=== PATIENT | male | born 1950 | race Caucasian/White ===

== ENCOUNTER 2017-08-27 12:00 | Observation (INO) | payer MEDICARE ==
[2017-08-27 15:46] LABS: Troponin I Less than 0.010 ng/mL (< 0.028)
--- NOTE | 2017-08-27 17:02 | HP ---
DATE OF ADMISSION: 08/27/2017 CHIEF COMPLAINT: Chest pain. HISTORY OF PRESENT ILLNESS: This is a 67-year-old white male with a known history of cardiac vasospa sms is in the past and has been closely followed up with Dr. Kay. Every year, he has a followup visit. The patient's last visit was in October. The patient is a known smoker and has been smoking 1 to 1-1/2 pack a day, but do not have any other known medical issues. Twenty years ago, he had a lida st pain and the patient had to go through a cardiac catheterization, which was showing evidence of va sospasm, but no stent was placed. Since then, the patient has been closely followed up with his Card iology. The patient otherwise is in good health. He denies having any nausea or vomiting at this ti me. The chest pain started yesterday, and when he woke up with pain of 4 on 10 intensity in the left precordium, which was intermittently coming and going. Today morning, he again noticed a similar pa in, so he decided to come to the ER for further evaluation. The patient also has a history of GERD a nd he takes Protonix for that. He did not think it was GERD or acid pain as it was more of heavy in nature. The patient had associated dizziness today along with sweating, so this is what triggered hi m to come to the ER. Right now, he is very comfortable. His pain is controlled with morphine. Ther e was no other aggravating factors for his chest pain. PAST MEDICAL HISTORY: 1. History of cardiac chest pain with NH in the past. 2. Active smoker. PAST SURGICAL HISTORY: The patient had no previous surgeries in the past. SOCIAL HISTORY: The patient is a known smoker. Smokes 1 to 1-1/2 pack a day. No history of alcohol . No history of illicit drug use. FAMILY HISTORY: The patient has significant family history of coronary artery disease, but his fathe r at the age of 67 and he was active smoker too, and mother also at age of 70. REVIEW OF SYSTEMS: All 12 systems are reviewed with the patient thoroughly and found to be negative at this time except the ones described in the HPI. ALLERGIES: No known drug allergies. HOME MEDICATIONS: None. PHYSICAL EXAMINATION: VITAL SIGNS: Blood pressures are 130/80, heart rate is 88, respiration rate is 18, saturation is 96% on room air. GENERAL: The patient is moderately built and moderately nourished. He does not appear to be in acut e distress at this time. He is alert and oriented x3. HEENT: Atraumatic, normocephalic. PERRLA. Extraocular movements are intact. Oral mucosa pink and moist. CARDIOVASCULAR: S1, S2 normal. No murmurs, no rubs, no gallops. LUNGS: Bilateral air entry was equal. No wheezing, no crackles. ABDOMEN: Soft, nontender. No guarding. No rebound tenderness. Bowel sounds normal. MUSCULOSKELETAL: No calf tenderness. No pedal edema. No joint redness. No joint swelling. SKIN: No cyanosis, no erythema, no rash, no pallor. NEUROLOGIC: Cranial nerve examination II-XII intact. No focal deficits were noted. NECK: No thyromegaly. No lymphadenopathy was noted. NODES: No generalized lymphadenopathy. No cervical or inguinal lymph nodes were noted. PSYCHIATRIC: No signs of suicidal ideation. No signs of eliot. LABORATORY DATA: Troponin 0.01. WBC was 12.8, hemoglobin 14.8, hematocrit is 43.4, platelets of 223 . Sodium is 138, potassium is 4.4, chloride is 107, BUN 13, creatinine 0.9. ASSESSMENT AND PLAN: 1. Acute chest pain, rule out myocardial infarction. 2. Acute leukocytosis. 3. Moderate dehydration. 4. Active smoker. 5. Gastroesophageal reflux disease. PLAN: 1. Plan is to admit this patient and closely monitor with serial troponins q.6 hours. If the patien t continues to have negative troponins, we will plan to do a nuclear stress test tomorrow. If the pa tient develops any further chest pains overnight, we will repeat an EKG and will consult Cardiology a t that time. 2. The patient has a history of active smoking. We will do a nicotine patch 14 mcg. 3. The patient has a history of gastroesophageal reflux disease. We will start the patient on famo tidine 20 mg IV b.i.d., and will give Tums as needed. 4. The patient has signs of dehydration with leukocytosis. Chest x-ray was done showing no evidence of any pneumonia at this time. We will closely monitor and repeat the CBC in the morning. Otherwis e, no other source of infection was noted. 5. DVT prophylaxis with Lovenox 40 mg subcu a day. I spent 70 minutes on this patient.
[2017-08-27] MEDS ORDERED: Acetaminophen 325 MG TAB PO PRN (17:59)
[2017-08-27] MEDS ORDERED: Ondansetron ODT 4 MG TAB PO PRN (17:59)
[2017-08-27] MEDS ORDERED: Ondansetron HCl/PF 4 MG/2 ML Vial IVP PRN (17:59)
[2017-08-27] MEDS ORDERED: Bisacodyl 5 MG TAB PO PRN (17:59)
[2017-08-27] MEDS ORDERED: Mag-Al 1200 mg/1200 mg/30 ML UDCUP PO PRN (17:59)
[2017-08-27] MEDS ORDERED: Nitroglycerin 0.4 MG TAB (25 Tab Bottle) PO PRN (17:59)
[2017-08-27] MEDS ORDERED: HYDROcodone/Acetaminophen 5/325 mg Tablet PO PRN (17:59)
[2017-08-27 18:22] VITALS: BMI 25.0
[2017-08-27] MEDS: Sodium Chloride 0.9% 1,000 ML IV SCH (18:28)
[2017-08-27 19:12] LABS: Troponin I 0.011 ng/mL (< 0.028)
[2017-08-27] MEDS: Docusate 100 MG CAP PO SCH (20:42)
[2017-08-27] MEDS: Carvedilol 3.125 MG TAB PO SCH (20:42)
[2017-08-27] MEDS: Famotidine/PF 20 mg/2ml Vial SLOW IVP SCH (20:43)
[2017-08-27 21:41] LABS: Troponin I Less than 0.010 ng/mL (< 0.028)
[2017-08-28 04:29] LABS: #Basophils 0.1 thou/uL (0.0-0.2); #Eosinphils 0.3 thou/uL (0.0-0.7); #Lymphocytes 2.7 thou/uL (1.20-3.40); %Basophils 0.8 % (0.0-1.0); %Eosinophils 2.5 % (0.0-10.0); %Lymphocytes 26.9 % (21.0-51.0); %Monocytes 9.5 % (0.0-10.0); %Neutrophils 60.2 % (42.0-75.0); Hemoglobin 13.7 g/dL (14.0-18.0); Mean Corpuscular Hemoglobin 32.3 pg (27.0-31.0); Mean Platelet Volume 6.9 fL (7.4-10.4); Platelet Count 221 thou/uL (130-400); RBC Distribution Width 13.4 % (11.5-14.5); Red Blood Cell (RBC) Count 4.24 mill/uL (4.70-6.10)
[2017-08-28 04:40] LABS: Anion Gap 5 mmol/L (10-20); BUN (Urea Nitrogen) 15 mg/dL (8.4-25.7); Calc. Creatinine Clearance 73 mL/min (70-130); Calcium 9.1 mg/dL (7.8-10.44); Carbon Dioxide 28 mmol/L (23-31); Cardiac Risk 3.5 (Less than 4.5); Chloride 108 mmol/L (98-107); Cholesterol 112 mg/dl (< 200 Desired); Estimated GFR-MDRD 73; Glucose 100 mg/dL (80-115); HDL Cholesterol 32 mg/dL (>60 Neg Risk); LDL Cholesterol, Calculated 52 mg/dL; Potassium 4.2 mmol/L (3.5-5.1); Sodium 137 mmol/L (136-145); Triglycerides 140 mg/dL (Less than 150)
[2017-08-28] MEDS ORDERED: ADENOSINE 60 MG/20 ML VIAL ONE (08:14)
[2017-08-28] MEDS ORDERED: Aspirin 325 MG TAB PO SCH (09:00)
[2017-08-28] MEDS ORDERED: Enoxaparin Sodium 40 MG/0.4 ML SYRINGE SC SCH (09:00)
[2017-08-28] MEDS: Sodium Chloride 0.9% 1,000 ML IV SCH (09:06)
[2017-08-28] MEDS: Carvedilol 3.125 MG TAB PO SCH (09:07)
[2017-08-28] MEDS: Docusate 100 MG CAP PO SCH ×2 (09:08→09:11)
[2017-08-28] MEDS: Famotidine/PF 20 mg/2ml Vial SLOW IVP SCH (09:10)
--- NOTE | 2017-08-28 14:17 | NM ---
NUCLEAR MEDICINE CARDIAC PERFUSION EXAMINATION WITH EJECTION FRACTION: HISTORY: A 67-year-old male with chest pain and a history of coronary artery disease/myocardial infarction. TECHNIQUE: A single-day nuclear medicine cardiac perfusion examination was performed. Rest images were obtained using 9 mCi of Technetium 99m sestamibi. Stress images were obtained using 27 mCi of Technetium 99m sestamibi and adenosine. FINDINGS: Tomographic images show no fixed or reversible perfusion defects. Gated images show normal wall brian on with an ejection fraction of 58%. EDV is 89 mL. LHR is 0.4. TID is 1.0. IMPRESSION: No evidence of ischemia. POS: DANE
[2017-08-28 16:11] VITALS: BP 135/77; TEMP 98.2
--- NOTE | 2017-08-29 10:00 | DIS ---
DATE OF ADMISSION: 08/27/2017 DATE OF DISCHARGE: 08/28/2017 ADMITTING DIAGNOSIS: Acute chest pain. DISCHARGE DIAGNOSIS: Acute chest pain, noncardiac. SECONDARY DIAGNOSES: History of IA in the past. Active smoker. PROCEDURES DONE DURING THIS ADMISSION: Nuclear stress test which was negative and with echo with eje ction fraction of 57%. HISTORY OF PRESENT ILLNESS: In brief, this is a 67-year-old white male with a known history of cardi ovascular spasms in the past and being closely followed by Dr. Kay, presented to the hospital wi th persistent chest pains for the past 2 days and has been smoking 1 to 1-1/2 pack a day and has been trying to quit. The patient was being closely followed by Dr. Kay and is supposed to be follow ed up in October of this year, so because of the persistent chest pain he had to come to the ER and was monitored with an EKG, was deemed normal and troponins have been normal. The patient was monitored overnight with negative troponins. The following day in the morning, a nuclear stress test was order ed along with a 2D echo, 2D echo had no wall motion abnormalities with EF of 57%. A nuclear stress t est was unremarkable with no evidence of any cardiac risk of chest pain. The patient was discharged home and reassured. Advised to continue on the Protonix for his GERD. The patient was discharged ho ut in stable condition. PHYSICAL EXAMINATION: VITAL SIGNS: Blood pressures are 135/63, heart rate is 67, respiration rate 18, saturation 98%. GENERAL: The patient is moderately built, moderately nourished. CARDIOVASCULAR: S1, S2 normal. No murmurs, rubs or gallops. LUNGS: Bilateral air entry was equal. No wheezing, no crackles. ABDOMEN: Soft, nontender. No guarding, no rebound tenderness. MUSCULOSKELETAL: No calf tenderness. No pedal edema. EXTREMITIES: No joint tenderness, no joint swelling. SUPPORT DIRECTOR: No cranial nerve deficits noted. No new neurologic deficits were noted. DISCHARGE MEDICATIONS: 1. Diltiazem 240 mg p.o. daily. 2. Ezetimibe/simvastatin 1 tablet p.o. at bedtime. DISCHARGE INSTRUCTIONS: Continue activity as tolerated. Advised to follow up with primary care phys jackeline in 1 week, advised to return to the ER if the patient has persistent chest pains or follow up w bertin Kay as per his schedule. Continue with a cardiac diet. I counseled the patient to quit smoking and spent more than 15 minutes explaining the patient. I spent 35 minutes with this patient on the day of discharge.
--- NOTE | 2017-11-27 21:07 | STRESS ---
Acquisition Time: 2017-08-28 12:18:58 Total Exercise Time: 00:04:00 Test Indications: CHEST PAIN Medications: Protocol: ADENOSINE Max HR: 086 BPM 55% of Pred: 154 BPM Max BP: 142/068 mmHG Max Work Load: 1.0 METS RESTING ECG: SINUS BRADYCARDIA AT 55 BPM WITH RARE PAC'S SYMPTOMS: DYSPNEA AND CHEST PAIN NORMAL BP RESPONSE ECTOPY: NONE ECG STRESS: NO SIGNIFICANT CHANGES INTERPRETATION: NEGATIVE ECG/AWAIT NUCLEAR IMAGES FOR DEFINITIVE DIAGNOSIS COMMENTS: 2:1 AV BLOCK WITH ADENOSINE INFUSION Confirmed by NINI GRUBER MD ([id number]) on 11/27/2017 9:06:48 PM Referred By: MD Lilibeth FUCHS Confirmed By:NINI GRUBER MD
== END 2017-08-28 16:25 | disposition home or self-care (01) ==
LOC: ERS 12:00 → 2SW 17:59
PROVIDERS: ADMIT Family Medicine; ATTEND Family Medicine
DX: R07.89 Other chest pain (principal); I25.2 Old myocardial infarction; F17.210 Nicotine dependence, cigarettes, uncomplicated; D72.829 Elevated white blood cell count, unspecified; E86.0 Dehydration; K21.9 Gastro-esophageal reflux disease without esophagitis; Z79.899 Other long term (current) drug therapy
CPT/HCPCS: 78452; 80048; 80061; 84484; 85025; 93017; 94760 ×2; 96361 ×2; 96374; 96376; 97139 ×3; 99285; 99406; A9500; G0378; G8987; G8988; G8989; 36415; J0153; S0028

== ENCOUNTER 2020-07-11 13:33 | Inpatient (IN) | payer MEDICARE ==
[2020-07-11 14:19] LABS: #Basophils 0.1 thou/uL (0.0-0.2); #Eosinphils 0.1 thou/uL (0.0-0.7); #Lymphocytes 3.6 thou/uL (1.20-3.40); #Monocytes 1.2 thou/uL (0.11-0.59); #Neutrophils 9.2 thou/uL (1.40-6.50); %Basophils 0.8 % (0.0-1.0); %Lymphocytes 25.3 % (21.0-51.0); %Monocytes 8.6 % (0.0-10.0); %Neutrophils 64.3 % (42.0-75.0); Mean Corpuscular HGB CONC 33.3 g/dL (32.0-36.0); Mean Corpuscular Hemoglobin 31.8 pg (27.0-31.0); Mean Corpuscular Volume 95.6 fL (78.0-98.0); Mean Platelet Volume 7.7 fL (7.4-10.4); Platelet Count 227 thou/uL (130-400); Red Blood Cell (RBC) Count 4.73 mill/uL (4.70-6.10); White Blood Cell (WBC) Count 14.2 thou/uL (4.8-10.8)
[2020-07-11 14:46] LABS: ALT (SGPT) 15 U/L (8-55); AST (SGOT) 19 U/L (5-34); Albumin 4.2 g/dL (3.4-4.8); Alkaline Phosphatase 77 U/L (40-110); Anion Gap 15 mmol/L (10-20); BUN (Urea Nitrogen) 18 mg/dL (8.4-25.7); Bilirubin, Total 0.5 mg/dL (0.2-1.2); Calc. Creatinine Clearance 0 mL/min (70-130); Calcium 9.5 mg/dL (7.8-10.44); Carbon Dioxide 22 mmol/L (23-31); Chloride 107 mmol/L (98-107); Estimated GFR-MDRD 62; Globulin 3.2 g/dL (2.4-3.5); Glucose 102 mg/dL (80-115); Potassium 4.1 mmol/L (3.5-5.1); Protein, Total 7.4 g/dL (5.8-8.1); Sodium 140 mmol/L (136-145)
[2020-07-11] MEDS ORDERED: Aspirin Chewable 81 MG TAB ONE (15:32)
--- NOTE | 2020-07-11 15:34 | CT ---
CTA HEAD WITH AND WITHOUT CONTRAST: CTA NECK WITH CONTRAST: 07/11/20 Axial tomograms obtained through the head without contrast. This is followed by CTA head and neck wit h multiplanar reconstruction and 3D postprocessing following angio protocol. INDICATIONS: Right arm weakness. CT HEAD WITHOUT CONTRAST: No comparison. Moderately severe chronic ischemic white matter changes are seen in both cerebral hemispheres. There is focal encephalomalacia in the left occipital lobe and parietal lobe consistent with an old infarct . There is no edema or mass. There is no evidence of acute cortical infarct. There is no hemorrhage. Pa ranasal sinuses appear clear. IMPRESSION: Moderately severe chronic ischemic white matter changes. Evidence of old left occipitoparietal infarc t. CTA HEAD: The intracranial internal carotid arteries are patent and symmetric. Cavernous ICAs are patent. There is focal stenosis at the origin of the left M1 segment at the carotid terminus. The mid and distal M1 is patent with no other stenosis seen. The right middle cerebral artery is giron nt throughout its course. Anterior cerebral arteries are patent. Basilar arteries patent. Posterior cerebral arteries appear patent and symmetric. IMPRESSION: Focal stenosis at the origin of the left middle cerebral artery at the carotid terminus. CTA NECK: There is atherosclerotic changes of the aortic arch. There is focal stenosis at the origin of the lef t common carotid artery which appears severe in the axial plane. The common carotid arteries are otherwise patent and symmetric. Mild atherosclerotic change at both bulbs; however, no stenosis in either extracranial internal carot id artery identified. Vertebral arteries appear patent and symmetric. Nodule in the right lobe of thyroid anteriorly measuring 1.0 cm. No other significant soft tissue abnormality. There are degenerative changes in the cervical spine most pronounced at C5-6 and C6-7 with posterior spondylosis at these levels abutting the cord and producing foraminal stenosis. IMPRESSION: 1. Severe stenosis at the origin of the left common carotid artery at the aortic arch. 2. Small right thyroid nodule. 3. Degenerative changes in the cervical spine prominent at C5-6 and C6-7 as described above. Findings relayed to Dr. Rodriguez. Babita KAM
[2020-07-11] MEDS ORDERED: Acetaminophen 325 MG TAB PO PRN (18:38)
[2020-07-11] MEDS ORDERED: Ondansetron PF 4 MG/2 ML Vial IVP PRN (18:38)
[2020-07-11] MEDS ORDERED: Clopidogrel Bisulfate 75 MG TAB ONE (19:10)
[2020-07-11] MEDS ORDERED: SIMVASTATIN PO SCH (21:00)
[2020-07-11] MEDS ORDERED: Simvastatin 10 MG TAB PO SCH (21:00)
[2020-07-11] MEDS ORDERED: Ezetimibe 10 MG TAB PO SCH (21:00)
[2020-07-11] MEDS ORDERED: Atorvastatin Calcium 40 MG TAB PO SCH (21:00)
[2020-07-11] MEDS ORDERED: EZETIMIBE PO SCH (21:00)
[2020-07-11 21:44] VITALS: BMI 25.4
--- NOTE | 2020-07-12 03:07 | HP ---
CHIEF COMPLAINT: Right arm numbness and tingling. HISTORY OF PRESENT ILLNESS: The patient is a 70-year-old male with past medical history of coronary spasms and hyperlipidemia, who presents to the hospital with tingling to his right arm going on for the past few weeks. The patient stated that initially his tingling and numbness was on and off to his right upper extremity, however, for the past week and a half it has been constant, it just intensifies at times. The patient states that he gets numbing and tingling all the way from his last 3 fingers going up and down his arm. Denies any chest tightness, any nausea, vomiting, or diarrhea. He stated that once he had some right lower extremity numbness, he experienced as if his leg fell asleep, however, that occurred only once. The patient followed up with Neurology as an outpatient. He was supposed to get an MRI, which would take longer than expected, so he came into the hospital. He was sent to the hospital by the primary care and by Neurology. PAST MEDICAL HISTORY: History of arthritis. He has coronary spasms, hyperlipidemia, heartburn, and skin cancer. PAST SURGICAL HISTORY: He has had cardiac catheterization. FAMILY HISTORY: Father is , diagnosed with hypertension, heart disease. Mother, hypertension and heart disease. SOCIAL HISTORY: He was a former heavy smoker, continues to smoke about 5 to 6 cigarettes a day. Occasional alcohol use. Denies any drug use. He is a full code. He lives with his family. REVIEW OF SYSTEMS: All negative except for the ones mentioned above in the HPI. PHYSICAL EXAMINATION: VITAL SIGNS: Temperature 98.5, respiratory rate 14, heart rate of 59, blood pressure 148/77, and 92% on room air. GENERAL: He is awake, alert, and oriented x3. Does not appear in distress. CV: S1 and S2 present. No murmurs, rubs, or gallops. LUNGS: Clear to auscultation. No rhonchi or wheezes noted. ABDOMEN: Soft and nontender. Bowel sounds are present x2. NEUROVASCULAR RIGGINS: Bilateral upper extremity strength and bilateral lower extremity strength intact. His sensation to his right arm is a little bit weaker compared to his left arm. [id number], [id number] intact. I did not ambulate the patient. SKIN: No cuts, lesions, or bruises noted. ALLERGIES: HE HAS NO KNOWN ALLERGIES. MEDICATIONS: 1. Cardizem 240 mg daily. 2. Vytorin 10 mg daily. 3. Metoprolol 25 mg twice a day. LABORATORY RESULTS: As of the following; WBCs of 14.2, hemoglobin 15.0, hematocrit of 45.2, and platelets of 227. Chemistry; sodium of 140, potassium of 4.1, BUN of 18, and creatinine of 1.17. His magnesium is 1.9. Troponins 0.013. He had an EKG, which appears to be significantly normal sinus rhythm. He had a CTA which indicated severe stenosis in the origin of the left common carotid artery at the aortic arch, small right thyroid nodule. Degenerative changes in the cervical spine, prominent in C5 and C6 and C6 and C7. ASSESSMENT AND PLAN: The patient is a 70-year-old male, who presents to the hospital with ongoing numbness and tingling to his right arm. 1. Right arm numbness and tingling, possible transient ischemic attack. CTA indicated severe stenosis to the origin of the left common carotid. The patient is not on aspirin. We will start him on a 325 aspirin. We will continue his Vytorin. We will check his lipid panel in the morning. We will get Neurology to evaluate him. We will get an echo and an MRI of the brain without contrast. We will also give CV surgery given his findings and his findings on the CTA with severe stenosis at the origin of the left common carotid. I have advised the patient against smoking session. 2. Coronary spasm. I will continue the Cardizem and the metoprolol. 3. Hyperlipidemia. Again, I will continue his Vytorin or we may add atorvastatin. 4. Deep venous thrombosis prophylaxis. I will put the patient on subcu Lovenox. Job ID: [id number]
[2020-07-12 03:50] LABS: SARS-CoV-2 MS2 Positive; SARS-CoV-2 N Gene Negative; SARS-CoV-2 S Gene Negative; SARS-CoV-2 by NAA Not Detected (NotDetected); SARS-CoV-2 orf1ab Negative
[2020-07-12 06:07] LABS: Cardiac Risk 3.9 (Less than 4.5)
[2020-07-12] MEDS ORDERED: Aspirin 325 mg Enteric Coated Tablet PO SCH (09:00)
[2020-07-12] MEDS ORDERED: Enoxaparin Sodium 40 MG/0.4 ML SYRINGE SC SCH (09:00)
[2020-07-12] MEDS ORDERED: Aspirin 81 mg Enteric Coated Tablet PO SCH (11:00)
--- NOTE | 2020-07-12 11:15 | CON ---
DATE OF CONSULTATION: HISTORY OF PRESENT ILLNESS: Mr. Cool was admitted through the emergency department on 07/11. I was asked to see him due to CT angiogram findings. He was admitted with right arm numbness for about 6 weeks. It has been intermittent. It is not associated with activities. He has no motor deficits. He has no symptoms in his right leg. He has no facial symptoms. He has had no visual or speech difficulty. The patient has a history of coronary spasm that has been followed by Dr. Kay. He has been intermittently unreliable and taking his medications at home. He has no history of myocardial infarction, cerebrovascular accident, abdominal aneurysm, claudication. PAST MEDICAL HISTORY: 1. Coronary spasm. 2. Dyslipidemia. 3. GERD. 4. Arthritis. PAST SURGICAL HISTORY: None. SOCIAL HISTORY: He continues to smoke. He uses occasional alcohol. MEDICATIONS: At home; 1. Metoprolol 25 mg b.i.d. 2. Cardizem CD 240 mg at bedtime. 3. Vytorin 1 tablet at bedtime. ALLERGIES: NONE. REVIEW OF SYSTEMS: A 10-point review of systems is negative except as above. PHYSICAL EXAMINATION: GENERAL: This is a well-developed, well-nourished male, resting comfortably on the stroke unit. VITAL SIGNS: Height 5 feet 7 inches. Weight is 162 pounds. Temperature is 96.7, pulse is 62 and regular, and blood pressure is 152/67. HEENT: Sclerae nonicteric. Pupils are equal and round bilaterally. NECK: Supple without bruit. CHEST: Clear bilaterally. HEART: Rhythm is regular without murmur. ABDOMEN: Soft and nontender. There are no masses. EXTREMITIES: No cyanosis, clubbing, or edema. VASCULAR: He has palpable carotid, radial, femoral, dorsalis pedis pulses bilaterally. NEURO: Motor exam is symmetric. He has no dissymmetry of his face. Speech pattern is normal. His vision appears normal. DIAGNOSTIC DATA: CT angiogram shows on the left common carotid artery takeoff from the aortic arch, there is a tight stenosis with no calcification. Carotids otherwise are completely normal. ASSESSMENT AND PLAN: Left common carotid artery stenosis with right-handed arm numbness. Symptoms are more than likely not related to his carotid stenosis. I have started him on aspirin and Plavix. I have told him we will follow him up in the office and discussed angiograms as an outpatient. This is a stentable lesion, but again I am not sure of the utility in that as it is not source of his symptomatology. This sounds more like a neurocompressive issue to me. Job ID: [id number]
--- NOTE | 2020-07-12 11:43 | MRI ---
EXAM: MRI of the brain without contrast HISTORY: Right-sided weakness COMPARISON: None TECHNIQUE: Multiplanar multisequence MR images were obtained of the brain without IV contrast. FINDINGS: Scattered foci of high T2/FLAIR signal in the subcortical and periventricular white matter are likely secondary to small vessel ischemic disease. There is confluent high FLAIR signal and restricted diffusion in the left posterior parietal lobe. Th is measures approximately 2.3 x 4.9 cm in size. No hydronephrosis. No extra-axial fluid collection or intracranial hemorrhage. The expected flow voids are present. Corpus callosum, pituitary, and craniocervical junction are within normal limits. The calvarium and overlying soft tissues are unremarkable. The paranasal sinuses and mastoid air cells are well aerated. IMPRESSION: Acute infarction in the left posterior parietal lobe.
[2020-07-12 11:53] VITALS: TEMP 98.2
--- NOTE | 2020-07-12 13:52 | CON ---
NEUROLOGY CONSULTATION DATE OF CONSULTATION: 07/12/2020 REASON FOR CONSULTATION: Right upper extremity numbness and paresthesias. HISTORY OF PRESENT ILLNESS: Mr. Cool is a 70-year-old male with medical history significant for coronary spasms and hyperlipidemia, presented to the emergency room with tingling of the right upper extremity, which has been ongoing for the last 2 weeks. Per the patient, the tingling and numbness was on and off in his right upper extremity, but since the past week and a half, it has been constant and intensified multiple times all the way to his last 3 fingers and down the arm. The patient denies any focal weakness, headache, chest pain, abdominal pain, double vision, loss of vision or loss of consciousness, nausea, vomiting, diarrhea, recent illness or recent exposure to COVID. Per the patient, he did have some right lower extremity numbness at times, which is also intermittent. He was seen by Dr. Murphy as outpatient and was supposed to get an MRI Brain, which took longer than expected, so he decided to come to the emergency room for further evaluation. In the emergency room, head CT was done, which did not reveal any acute intracranial pathology. CTA indicated severe stenosis in the origin of the left common carotid artery at the aortic arch and degenerative changes in the cervical spine, prominent in C5 and C6 and C7. REVIEW OF SYSTEMS: All systems were reviewed and were negative except the pertinent positives and negatives mentioned in the HPI. PAST MEDICAL HISTORY: Arthritis, coronary spasm, hyperlipidemia, GERD, and skin cancer. PAST SURGICAL HISTORY: Cardiac catheterization. FAMILY HISTORY: Hypertension, coronary artery disease. SOCIAL HISTORY: The patient is a former heavy smoker. He continues to smoke 5 to 6 cigarettes a day. Occasional alcohol use. Denies drug use. Lives with family. PHYSICAL EXAMINATION: VITAL SIGNS: Blood pressure 148/77, heart rate 59, and respiratory rate 14. GENERAL: He is alert and awake male, in no acute distress. CVS: Regular rate and rhythm. CHEST: Clear. ABDOMEN: Soft. NECK: Supple. NEUROLOGICAL: Mental status; the patient is alert and oriented to person, place, and time. Recent and remote memory intact. Fund of knowledge is appropriate. Speech is clear. Cranial nerves II through XII intact. Motor; muscle tone and bulk are normal. Strength 5/5 bilaterally. Sensory; decreased sensation to light touch in the right upper extremity. Cerebellar; finger-nose testing intact. Gait; deferred due to the patient's safety reason. ALLERGIES: NO KNOWN DRUG ALLERGIES. HOME MEDICATIONS: 1. Cardizem 240 mg daily. 2. Vytorin 10 mg daily. 3. Metoprolol 25 mg twice a day. DATA REVIEWED: I reviewed the labs. The EKG, which showed normal sinus rhythm. CTA findings were abnormal as indicated in the HPI. ASSESSMENT AND PLAN: Mr. Cool is a 70-year-old male, who presented with ongoing numbness and paresthesias of the right upper extremity. CTA of the neck shows severe stenosis to the origin of the left common carotid artery. The patient was already seen by CV Surgery. Recommendations appreciated. MRI of the brain did show an acute infarct in the left posterior parietal lobe consistent with his symptoms. 2D echo completed, which showed left ventricular ejection fraction 55% to 60%. No thrombus or PFO. Continue telemetry to rule out arrhythmias. The patient started on aspirin and Plavix yesterday because of atherosclerotic occlusive disease. Continue aspirin and Plavix for secondary stroke prevention. Continue statin for secondary stroke prevention. Neuro checks every 4 hours. Permissive control of blood pressure at this time for 48 hours. Strict control of blood glucose. PT/OT/Speech. We will continue to follow. Thank you for the consult. Job ID: [id number] [id number]
[2020-07-12 15:21] VITALS: BP 133/60
--- NOTE | 2020-07-12 17:42 | DIS ---
DATE OF ADMISSION: 07/11/2020 DATE OF DISCHARGE: 07/12/2020 DISCHARGE DIAGNOSES: As of the followin. Acute left posterior parietal lobe stroke. 2. Left carotid stenosis. HOSPITAL COURSE: Patient is a 70-year-old male, who initially presented to the hospital with a right arm tingling sensation, which has been going on for a few weeks. He initially came into the hospital, underwent a CTA, which indicated a severe stenosis at the origin of the left common carotid and the aortic arch, also small right thyroid nodule. At this time, patient was seen by Neurology and CV Surgery. A brain MRI indicated acute infarct in the left posterior parietal lobe. Patient also underwent an echocardiogram which indicated an EF of 55% to 60%. Patient at this time was seen by CV Surgery, who recommended dual antiplatelet therapy since patient was not taking anything and follow up as an outpatient. Patient actually wanted to leave. He did not want to stick around for another day. I did advise the patient to stop taking his blood pressure medications for the past couple of days and to check his blood pressure at home. Patient actually takes the Cardizem for coronary spasms and he takes the metoprolol for tremors. I have told him to stop the metoprolol for now. Continue with the blood pressure monitoring and follow up with his Primary and also hold the Cardizem for the next two days. Patient states that if he stops it longer than two days, he starts getting coronary spasms which causes significant chest tightness. Patient will follow up again with CV Surgery as an outpatient and also with primary care. I did tell the patient if anything changes in terms of worsening symptoms, he needs to come back to the ER. Right thyroid nodule. I did ask the patient to follow up as an outpatient for further evaluation. HOME MEDICATIONS: Will be: 1. Aspirin 81 mg daily. 2. Plavix 75 mg daily. 3. Vytorin 1 tab daily. Diltiazem and metoprolol will be held. PHYSICAL EXAMINATION: VITAL SIGNS: Temperature 98.2, heart rate of 59, 18, 97% on room air, and 152/67. GENERAL: He is awake, alert, and oriented x3. Does not appear in distress. CV: S1, S2 present. No murmurs, rubs, or gallops. EXTREMITIES: Again, his bilateral upper extremity and lower extremity strength is intact. He is able to ambulate without any difficulties. Job ID: [id number]
[2020-07-13] MEDS ORDERED: Clopidogrel Bisulfate 75 MG TAB PO SCH (09:00)
[2020-07-13] MEDS ORDERED: Aspirin 81 mg Enteric Coated Tablet PO SCH (09:00)
== END 2020-07-12 15:34 | disposition home or self-care (01) | DRG 65 ==
LOC: ERS 13:33 → 2SE 17:49
PROVIDERS: ADMIT Internal Medicine; ATTEND Internal Medicine
DX: I63.89 Other cerebral infarction (principal); I20.1 Angina pectoris with documented spasm; R20.2 Paresthesia of skin; E78.5 Hyperlipidemia, unspecified; M19.90 Unspecified osteoarthritis, unspecified site; R25.1 Tremor, unspecified; E04.1 Nontoxic single thyroid nodule; Z20.828 Contact with and (suspected) exposure to other viral communicable diseases; I65.22 Occlusion and stenosis of left carotid artery; K21.9 Gastro-esophageal reflux disease without esophagitis; Z85.828 Personal history of other malignant neoplasm of skin; Z87.891 Personal history of nicotine dependence
CPT/HCPCS: 36415; 70496; 70498; 70551; 80053; 80061; 83735; 84484; 85025; 87635; 93005; 93306; J1650; U0003

== ENCOUNTER 2020-07-26 06:52 | Outpatient (CLI) | payer MEDICARE ==
[2020-07-26 14:33] LABS: Hemoglobin 14.1 g/dL (14.0-18.0); Mean Corpuscular HGB CONC 33.8 G/DL (32.0-36.0); Mean Corpuscular Volume 94.8 fl (80.0-100.0); Mean Platelet Volume 9.7 fl (7.4-10.4); Platelet Count 262 10x3/uL (130-400); RBC Distribution Width 14.2 % (11.5-14.5); White Blood Cell (WBC) Count 9.2 10x3/uL (4.5-11.0)
[2020-07-26 14:43] LABS: Anion Gap 16 mmol/L (10-20); BUN (Urea Nitrogen) 12 mg/dL (8.4-25.7); Calc. Creatinine Clearance 0 mL/min (70-130); Calcium 9.8 mg/dL (7.8-10.44); Carbon Dioxide 20 mmol/L (23-31); Chloride 107 mmol/L (98-107); Glucose 103 mg/dL (80-115); Potassium 4.3 mmol/L (3.5-5.1); Sodium 139 mmol/L (136-145)
[2020-07-27 03:14] LABS: SARS-CoV-2 MS2 Positive; SARS-CoV-2 N Gene Negative; SARS-CoV-2 S Gene Negative; SARS-CoV-2 by NAA Not Detected (NotDetected); SARS-CoV-2 orf1ab Negative
== END 2020-07-26 06:53 | disposition home or self-care (01) ==
LOC: LABBT 06:52
PROVIDERS: ATTEND Thoracic Surgery (Cardiothoracic Vascular Surgery)
DX: Z01.812 Encounter for preprocedural laboratory examination (principal); I65.22 Occlusion and stenosis of left carotid artery; Z20.828 Contact with and (suspected) exposure to other viral communicable diseases
CPT/HCPCS: 80048; 85027; U0003; 87635

== ENCOUNTER 2020-07-26 13:45 | Inpatient (IN) | payer MEDICARE ==
[2020-07-31] MEDS ORDERED: Heparin 5,000 UNITS/ML VIAL ONE (06:31)
[2020-07-31] MEDS ORDERED: Protamine Sulfate 50 MG/5 ML VIAL ONE (06:31)
[2020-07-31] MEDS ORDERED: EPINEPHrine 1 MG/ML AMP ONE (06:31)
[2020-07-31] MEDS ORDERED: Bupivacaine PF 0.5% 30 ML VIAL ONE (06:31)
[2020-07-31] MEDS ORDERED: Fentanyl 100 MCG/2 ML VIAL ONE ×2 (06:50→16:47)
[2020-07-31] MEDS ORDERED: Midazolam HCl 2 mg/2 ml Vial ONE (07:05)
--- NOTE | 2020-07-31 08:55 | OP ---
DATE OF PROCEDURE: 07/31/2020 PREOPERATIVE DIAGNOSIS: Symptomatic left common carotid artery stenosis. POSTOPERATIVE DIAGNOSIS: Symptomatic left common carotid artery stenosis. PROCEDURES PERFORMED: 1. Ultrasound-guided interrogation of the left common carotid artery. 2. Open exposure of the left common carotid artery. 3. Left common carotid artery angiogram. 4. Stenting of left common carotid artery at the aortic arch with an 8 x 27 Express LD stent taken to 8 mmHg. ESTIMATED BLOOD LOSS: Minimal. TOTAL CONTRAST: 20 mL. FLUORO TIME: 1 minute 33 seconds. DESCRIPTION OF PROCEDURE: After consent was obtained, the patient was brought to the operating room, placed in supine position on the operating table. Appropriate central line and monitors were placed, and general endotracheal anesthesia was induced. Using ultrasound, the left carotid system was interrogated. The carotid bifurcation was marked, and an incision was marked just below the bifurcation. Neck was prepped and draped in usual sterile fashion. Skin incision was made, and common carotid artery exposed. A 5-0 Prolene pursestring suture was placed in the common carotid artery. The patient was systemically heparinized. The micropuncture needle, wire, and sheath were used to access the common carotid artery. Angiogram was performed, illuminating the common carotid artery, the area of stenosis at the aortic arch and the aortic arch. A Fancy Handsson guidewire was passed and passed easily through the area of stenosis. A 6-[place] sheath was passed down into the aortic arch and a second angiogram performed, further illuminating the edge of the aortic arch and the area of stenosis. An 8 x 27 stent was selected. Common carotid was clamped cephalad to the sheath access site. The stent was passed over the guidewire, positioned and deployed. Followup angiogram showed an excellent result with no residual stenosis. The sheath was removed, and the artery allowed to antegrade bleed. Clamp was removed. Pursestring suture was tied. Wounds were irrigated, closed in layers. Dermabond applied to the skin. 0.5% Marcaine block was performed. The patient was awakened and neurologically unchanged in the operating room. The patient was transferred to recovery room in stable condition. Needle, sponge, and instrument counts were all reported as correct at the end of the procedure. Job ID: [id number] [facility]
[2020-07-31] MEDS ORDERED: traMADol HCl 50 MG TAB PO PRN (10:27)
[2020-07-31] MEDS ORDERED: Phenylephrine 40 MG in Sodium Chloride 0.9% 250 ML 250 ML IVPB PRN (10:27)
[2020-07-31] MEDS ORDERED: Nitroglycerin 50 MG/250 ML BOT 250 ML IVPB PRN (10:27)
[2020-07-31] MEDS ORDERED: Acetaminophen 325 MG TAB PO PRN (10:27)
[2020-07-31] MEDS ORDERED: Fentanyl 100 MCG/2 ML VIAL SLOW IVP PRN (10:27)
[2020-07-31] MEDS ORDERED: Ondansetron PF 4 MG/2 ML Vial IVP PRN (10:27)
[2020-07-31] MEDS ORDERED: hydrALAZINE 20 MG/ML VIAL SLOW IVP PRN (10:27)
[2020-07-31] MEDS ORDERED: PHENYLEPHRINE-NS 100 MCG/ML 10 ML SYRINGE ONE (10:33)
[2020-07-31] MEDS ORDERED: ePHEDrine 50 MG/ML VIAL ONE (10:33)
[2020-07-31] MEDS ORDERED: Glycopyrrolate 0.2 MG/ML 5 ML SYRINGE ONE (10:33)
[2020-07-31] MEDS ORDERED: PROPOFOL 200 MG/20 ML VIAL ONE (10:33)
[2020-07-31] MEDS ORDERED: Lidocaine 1% PF 5 ML VIAL ONE (10:33)
[2020-07-31] MEDS ORDERED: Ondansetron PF 4 MG/2 ML Vial ONE (10:33)
[2020-07-31] MEDS ORDERED: Rocuronium Bromide 10 MG/ML (10ML VIAL) ONE (10:33)
[2020-07-31] MEDS: CEFAZOLIN 2 GM in Premix Bag 1 BAG IVPB SCH ×2 (16:40→23:08)
[2020-07-31] MEDS ORDERED: Simvastatin 10 MG TAB PO SCH (21:00)
[2020-07-31] MEDS ORDERED: Ezetimibe 10 MG TAB PO SCH (21:00)
[2020-07-31] MEDS: Sodium Chloride 0.9% 1,000 ML IV SCH ×2 (21:02→21:40)
[2020-07-31 21:13] VITALS: BMI 25.7
[2020-07-31 21:40] VITALS: BP 121/64
[2020-07-31] MEDS: Metoprolol Tartrate 25 MG TAB PO SCH (22:50)
[2020-08-01 04:16] VITALS: TEMP 98.5
[2020-08-01] MEDS: Sodium Chloride 0.9% 1,000 ML IV SCH (06:56)
--- NOTE | 2020-08-01 07:34 | DIS ---
DATE OF ADMISSION: 07/31/2020 DATE OF DISCHARGE: 08/01/2020 DIAGNOSIS: Symptomatic left common carotid stenosis. PROCEDURE: Left common carotid artery stenting. DISCHARGE MEDICATIONS: Unchanged from his admission. DESCRIPTION OF HOSPITAL STAY: Mr. Cool was admitted for elective left carotid stent. He has done well postoperatively. Neurologically, he is unchanged. He has had no problems and he is being discharged this morning to follow up with me in two weeks. Job ID: [id number]
[2020-08-01] MEDS: CEFAZOLIN 2 GM in Premix Bag 1 BAG IVPB SCH (07:36)
[2020-08-01] MEDS: Metoprolol Tartrate 25 MG TAB PO SCH (07:36)
[2020-08-01] MEDS ORDERED: Clopidogrel Bisulfate 75 MG TAB PO SCH (09:00)
[2020-08-01] MEDS ORDERED: Aspirin 81 mg Enteric Coated Tablet PO SCH (09:00)
[2020-08-01] MEDS ORDERED: FLU VACC QS2020-21(65YR UP)/PF 240 MCG/0.7 ML SYRINGE IM ONE (21:00)
== END 2020-08-01 09:06 | disposition home or self-care (01) | DRG 36 ==
LOC: SURG A 07-31 05:48 → EDSTATUS 07-31 13:45 → CCU 07-31 20:27
PROVIDERS: ADMIT Thoracic Surgery (Cardiothoracic Vascular Surgery); ATTEND Thoracic Surgery (Cardiothoracic Vascular Surgery)
PROC: 037J3DZ Dilation of Left Common Carotid Artery with Intraluminal Device, Percutaneous Approach (ICD-10-PCS; principal; 2020-07-31)
PROC: B3141ZZ Fluoroscopy of Left Common Carotid Artery using Low Osmolar Contrast (ICD-10-PCS; 2020-07-31)
PROC: 03JY0ZZ Inspection of Upper Artery, Open Approach (ICD-10-PCS; 2020-07-31)
DX: I65.22 Occlusion and stenosis of left carotid artery (principal); E78.5 Hyperlipidemia, unspecified; M19.90 Unspecified osteoarthritis, unspecified site; K21.9 Gastro-esophageal reflux disease without esophagitis; Z79.82 Long term (current) use of aspirin; Z79.02 Long term (current) use of antithrombotics/antiplatelets
CPT/HCPCS: 76000; C1876; J0171; J0690; J1642; J1644; J2250; J2405; J2704; J2720; J3010; J3490; J7620; S0020

== ENCOUNTER 2020-12-18 14:28 | Inpatient (IN) | payer MEDICARE ==
[2020-12-18] MEDS ORDERED: Enoxaparin Sodium 40 MG/0.4 ML SYRINGE SC SCH ×2 (16:00→20:15)
[2020-12-18 18:18] VITALS: BMI 24.9
[2020-12-18] MEDS: Sodium Chloride 0.9% 1,000 ML IV SCH (21:31)
[2020-12-18] MEDS: Atorvastatin Calcium 40 MG TAB PO SCH (21:32)
[2020-12-19 05:02] LABS: #Basophils 0.1 thou/uL (0.0-0.2); #Eosinphils 0.3 thou/uL (0.0-0.7); #Lymphocytes 2.8 thou/uL (1.20-3.40); #Monocytes 1.3 thou/uL (0.11-0.59); #Neutrophils 6.3 thou/uL (1.40-6.50); %Basophils 0.5 % (0.0-1.0); %Eosinophils 2.6 % (0.0-10.0); %Lymphocytes 25.8 % (21.0-51.0); %Monocytes 11.8 % (0.0-10.0); %Neutrophils 59.3 % (42.0-75.0); Hemoglobin 13.6 g/dL (14.0-18.0); Mean Corpuscular Hemoglobin 31.7 pg (27.0-31.0); Mean Corpuscular Volume 96.1 fL (78.0-98.0); Mean Platelet Volume 7.7 fL (7.4-10.4); Platelet Count 225 thou/uL (130-400); RBC Distribution Width 12.7 % (11.5-14.5); Red Blood Cell (RBC) Count 4.28 mill/uL (4.70-6.10); White Blood Cell (WBC) Count 10.7 thou/uL (4.8-10.8)
[2020-12-19 05:44] LABS: Anion Gap 13 mmol/L (10-20); BUN (Urea Nitrogen) 15 mg/dL (8.4-25.7); Calc. Creatinine Clearance 74 mL/min (70-130); Calcium 9.6 mg/dL (7.8-10.44); Carbon Dioxide 21 mmol/L (23-31); Cardiac Risk 4.6 (Less than 4.5); Chloride 107 mmol/L (98-107); Cholesterol 120 mg/dl (< 200 Desired); Glucose 99 mg/dL (80-115); HDL Cholesterol 26 mg/dL (>60 Neg Risk); LDL Cholesterol, Calculated 53 mg/dL; Sodium 137 mmol/L (136-145); Triglycerides 205 mg/dL (Less than 150)
[2020-12-19 08:58] LABS: SARS-CoV-2 PCR NAA for Saliva Not Detected (NotDetected)
[2020-12-19] MEDS: Aspirin 81 mg Enteric Coated Tablet PO SCH (09:12)
[2020-12-19] MEDS: Clopidogrel Bisulfate 75 MG TAB PO SCH (09:12)
[2020-12-19] MEDS: Sodium Chloride 0.9% 1,000 ML IV SCH (19:51)
[2020-12-19] MEDS: Atorvastatin Calcium 40 MG TAB PO SCH (20:23)
[2020-12-20] MEDS: Aspirin 81 mg Enteric Coated Tablet PO SCH (08:12)
[2020-12-20] MEDS: Clopidogrel Bisulfate 75 MG TAB PO SCH (08:12)
[2020-12-20] MEDS: Atorvastatin Calcium 40 MG TAB PO SCH (21:14)
[2020-12-21] MEDS ORDERED: Fentanyl 100 MCG/2 ML VIAL ONE (09:24)
[2020-12-21] MEDS ORDERED: PROPOFOL 20 ML ONE (09:25)
[2020-12-21] MEDS ORDERED: PROPOFOL 200 MG/20 ML VIAL ONE (09:57)
[2020-12-21] MEDS: Clopidogrel Bisulfate 75 MG TAB PO SCH (10:45)
[2020-12-21] MEDS: Aspirin 81 mg Enteric Coated Tablet PO SCH (10:45)
[2020-12-21 10:53] VITALS: BP 143/79; TEMP 97.5
== END 2020-12-21 12:25 | disposition home or self-care (01) | DRG 66 ==
LOC: ERS 14:28 → 2SE 15:48
PROVIDERS: ADMIT Internal Medicine; ATTEND Internal Medicine
DX: I63.442 Cerebral infarction due to embolism of left cerebellar artery (principal); R47.01 Aphasia; Z20.822 Contact with and (suspected) exposure to COVID-19; E78.5 Hyperlipidemia, unspecified; F17.210 Nicotine dependence, cigarettes, uncomplicated; I65.22 Occlusion and stenosis of left carotid artery; R47.1 Dysarthria and anarthria; R29.703 NIHSS score 3; R20.2 Paresthesia of skin; R40.4 Transient alteration of awareness; G83.31 Monoplegia, unspecified affecting right dominant side; Z95.828 Presence of other vascular implants and grafts; Z91.14 Patient's other noncompliance with medication regimen; Z86.73 Personal history of transient ischemic attack (TIA), and cerebral infarction without residual deficits; Z79.82 Long term (current) use of aspirin; Z79.899 Other long term (current) drug therapy; Z79.02 Long term (current) use of antithrombotics/antiplatelets
CPT/HCPCS: 36415; 70551; 80048; 80061; 85025; 87635; 93306; 93312; 95712; 95819; 95957; J1650; J2704; J3010; U0003; U0005

== ENCOUNTER 2021-01-29 02:59 | Inpatient (IN) | payer MEDICARE ==
[2021-01-29] MEDS ORDERED: Naloxone HCl 2 mg/2 ml Syringe ONE (05:20)
[2021-01-29 09:52] LABS: SARS-CoV-2 NAA Rapid Test Not Detected (NotDetected)
[2021-01-29 13:47] VITALS: BMI 25.3
[2021-01-29] MEDS: Piperacillin/Tazobactam 4.5 GM in Sodium Chloride 0.9% 100 ML IVPB SCH ×2 (15:55→22:23)
[2021-01-29] MEDS: Atorvastatin Calcium 40 MG TAB PO SCH (20:18)
[2021-01-30] MEDS: Piperacillin/Tazobactam 4.5 GM in Sodium Chloride 0.9% 100 ML IVPB SCH (06:39)
[2021-01-30 08:36] LABS: #Basophils 0.1 thou/uL (0.0-0.2); #Eosinphils 0.3 thou/uL (0.0-0.7); #Lymphocytes 2.7 thou/uL (1.20-3.40); #Monocytes 1.6 thou/uL (0.11-0.59); #Neutrophils 12.5 thou/uL (1.40-6.50); %Basophils 0.4 % (0.0-1.0); %Eosinophils 1.9 % (0.0-10.0); %Lymphocytes 15.4 % (21.0-51.0); %Monocytes 9.2 % (0.0-10.0); Hemoglobin 14.2 g/dL (14.0-18.0); Mean Corpuscular HGB CONC 33.1 g/dL (32.0-36.0); Mean Corpuscular Hemoglobin 31.6 pg (27.0-31.0); Mean Corpuscular Volume 95.5 fL (78.0-98.0); Mean Platelet Volume 7.8 fL (7.4-10.4); Platelet Count 233 thou/uL (130-400); RBC Distribution Width 12.9 % (11.5-14.5); White Blood Cell (WBC) Count 17.2 thou/uL (4.8-10.8)
[2021-01-30 08:47] LABS: Anion Gap 17 mmol/L (10-20); BUN (Urea Nitrogen) 13 mg/dL (8.4-25.7); Calc. Creatinine Clearance 54 mL/min (70-130); Carbon Dioxide 19 mmol/L (23-31); Chloride 105 mmol/L (98-107); Glucose 105 mg/dL (80-115); Magnesium 1.8 mg/dL (1.6-2.6); Sodium 137 mmol/L (136-145)
[2021-01-30] MEDS ORDERED: Non-Formulary Item 1 EACH (Esomeprazole Magnesium [Nexium 24hr] 20 MG Capsule.Dr) PO SCH (09:00)
[2021-01-30] MEDS: Aspirin 81 mg Enteric Coated Tablet PO SCH (09:00)
[2021-01-30] MEDS: Amlodipine 5 MG TAB PO SCH (09:01)
[2021-01-30] MEDS: metroNIDAZOLE 500 MG TAB PO SCH ×2 (13:51→21:02)
[2021-01-30] MEDS: Ciprofloxacin 500 MG TAB PO SCH (21:00)
[2021-01-30] MEDS: Atorvastatin Calcium 40 MG TAB PO SCH (21:01)
[2021-01-31 04:12] VITALS: TEMP 97.9
[2021-01-31] MEDS: Ciprofloxacin 500 MG TAB PO SCH (05:08)
[2021-01-31] MEDS: metroNIDAZOLE 500 MG TAB PO SCH (07:58)
[2021-01-31] MEDS: Amlodipine 5 MG TAB PO SCH (07:58)
[2021-01-31] MEDS: Aspirin 81 mg Enteric Coated Tablet PO SCH (07:58)
[2021-01-31 08:25] VITALS: BP 126/72
[2021-01-31 10:27] LABS: #Basophils 0.1 thou/uL (0.0-0.2); #Eosinphils 0.4 thou/uL (0.0-0.7); #Lymphocytes 2.5 thou/uL (1.20-3.40); #Monocytes 1.2 thou/uL (0.11-0.59); #Neutrophils 7.7 thou/uL (1.40-6.50); %Basophils 0.6 % (0.0-1.0); %Eosinophils 3.1 % (0.0-10.0); %Monocytes 9.8 % (0.0-10.0); %Neutrophils 65.5 % (42.0-75.0); Hemoglobin 13.5 g/dL (14.0-18.0); Mean Corpuscular HGB CONC 32.7 g/dL (32.0-36.0); Mean Corpuscular Hemoglobin 31.7 pg (27.0-31.0); Mean Corpuscular Volume 96.9 fL (78.0-98.0); Mean Platelet Volume 7.9 fL (7.4-10.4); Platelet Count 222 thou/uL (130-400); RBC Distribution Width 12.6 % (11.5-14.5); Red Blood Cell (RBC) Count 4.26 mill/uL (4.70-6.10); White Blood Cell (WBC) Count 11.8 thou/uL (4.8-10.8)
[2021-01-31 10:45] LABS: Anion Gap 14 mmol/L (10-20); BUN (Urea Nitrogen) 12 mg/dL (8.4-25.7); Calc. Creatinine Clearance 59 mL/min (70-130); Calcium 9.7 mg/dL (7.8-10.44); Carbon Dioxide 22 mmol/L (23-31); Chloride 105 mmol/L (98-107); Glucose 117 mg/dL (80-115); Potassium 3.7 mmol/L (3.5-5.1); Sodium 137 mmol/L (136-145)
== END 2021-01-31 11:54 | disposition home or self-care (01) | DRG 392 ==
LOC: ERS 02:59 → ERHOLD 03:45 → 2SW 13:20 → OBSVTOIN 01-31 11:13
PROVIDERS: ADMIT Internal Medicine; ATTEND Internal Medicine
DX: K57.92 Diverticulitis of intestine, part unspecified, without perforation or abscess without bleeding (principal); Z20.822 Contact with and (suspected) exposure to COVID-19; I25.10 Atherosclerotic heart disease of native coronary artery without angina pectoris; I44.1 Atrioventricular block, second degree; E78.5 Hyperlipidemia, unspecified; I10 Essential (primary) hypertension; I71.4 Abdominal aortic aneurysm, without rupture; I71.2 Thoracic aortic aneurysm, without rupture; K21.9 Gastro-esophageal reflux disease without esophagitis; I25.2 Old myocardial infarction; Z86.73 Personal history of transient ischemic attack (TIA), and cerebral infarction without residual deficits; Z95.828 Presence of other vascular implants and grafts; Z79.899 Other long term (current) drug therapy; Z79.82 Long term (current) use of aspirin
CPT/HCPCS: 36415; 80048; 83735; 85025; 87040; 93005; 93306; 96365; G0378; J2310; J2543; J3490; U0002; U0005

== ENCOUNTER 2021-08-21 13:05 | Outpatient (CLI) | payer MEDICARE | END 2021-08-21 13:06 | disposition home or self-care (01) | LOC: BICCT 13:05 | PROVIDERS: ATTEND Thoracic Surgery (Cardiothoracic Vascular Surgery) | DX: I65.22 Occlusion and stenosis of left carotid artery (principal); E04.1 Nontoxic single thyroid nodule | CPT/HCPCS: 70498; 82565 ==

== ENCOUNTER 2021-08-27 11:23 | Outpatient (CLI) | payer MEDICARE | END 2021-08-27 11:24 | disposition home or self-care (01) | LOC: BICCT 11:23 | PROVIDERS: ATTEND Thoracic Surgery (Cardiothoracic Vascular Surgery) | DX: I65.22 Occlusion and stenosis of left carotid artery (principal); I71.2 Thoracic aortic aneurysm, without rupture; I71.4 Abdominal aortic aneurysm, without rupture | CPT/HCPCS: 74174 ==

== ENCOUNTER 2022-03-25 08:14 | Outpatient (CLI) | payer MEDICARE ==
[2022-03-25] MEDS ORDERED: Iopamidol 370 76% 100 ML VIAL ONE (09:13)
== END 2022-03-25 08:15 | disposition home or self-care (01) ==
LOC: CT 08:14
PROVIDERS: ATTEND Thoracic Surgery (Cardiothoracic Vascular Surgery)
DX: I50.22 Chronic systolic (congestive) heart failure (principal); I71.4 Abdominal aortic aneurysm, without rupture; I71.2 Thoracic aortic aneurysm, without rupture
CPT/HCPCS: 71275; 74174; 82565; Q9967

== ENCOUNTER 2022-06-04 07:59 | Emergency (ER) | payer MEDICARE ==
[2022-06-04 08:39] LABS: #Basophils 0.1 thou/uL (0.0-0.2); #Eosinphils 0.1 thou/uL (0.0-0.7); #Lymphocytes 1.2 thou/uL (1.20-3.40); #Monocytes 0.7 thou/uL (0.11-0.59); #Neutrophils 7.1 thou/uL (1.40-6.50); %Basophils 0.6 % (0.0-1.0); %Lymphocytes 12.8 % (21.0-51.0); %Monocytes 7.3 % (0.0-10.0); %Neutrophils 78.3 % (42.0-75.0); Hemoglobin 13.8 g/dL (14.0-18.0); Mean Corpuscular Hemoglobin 32.8 pg (27.0-31.0); Mean Corpuscular Volume 99.4 fL (78.0-98.0); Mean Platelet Volume 7.7 fL (7.4-10.4); Platelet Count 167 thou/uL (130-400); RBC Distribution Width 13.8 % (11.5-14.5); Red Blood Cell (RBC) Count 4.22 mill/uL (4.70-6.10); White Blood Cell (WBC) Count 9.1 thou/uL (4.8-10.8)
[2022-06-04 08:52] LABS: ALT (SGPT) 8 U/L (8-55); AST (SGOT) 16 U/L (5-34); Albumin 3.8 g/dL (3.4-4.8); Alkaline Phosphatase 65 U/L (40-110); Anion Gap 12 mmol/L (10-20); BUN (Urea Nitrogen) 12 mg/dL (8.4-25.7); Bilirubin, Total 0.4 mg/dL (0.2-1.2); CK (CPK) 89 U/L (30-200); Calc. Creatinine Clearance 0 mL/min (70-130); Calcium 9.3 mg/dL (7.8-10.44); Carbon Dioxide 21 mmol/L (23-31); Chloride 105 mmol/L (98-107); Estimated GFR 87; Globulin 2.8 g/dL (2.4-3.5); Glucose 153 mg/dL (83-110); Magnesium 1.6 mg/dL (1.6-2.6); Protein, Total 6.6 g/dL (5.8-8.1); Sodium 134 mmol/L (136-145)
== END 2022-06-04 10:15 | disposition home or self-care (01) ==
LOC: ERS 07:59
DX: R41.82 Altered mental status, unspecified (principal); I10 Essential (primary) hypertension; E78.5 Hyperlipidemia, unspecified; I25.10 Atherosclerotic heart disease of native coronary artery without angina pectoris; F17.210 Nicotine dependence, cigarettes, uncomplicated; Z86.73 Personal history of transient ischemic attack (TIA), and cerebral infarction without residual deficits; Z79.82 Long term (current) use of aspirin; Z79.899 Other long term (current) drug therapy
CPT/HCPCS: 70450; 71045; 80053; 82550; 83735; 84146; 84443; 85025; 93005; 94760